=== PATIENT | male | born 1975 | race Caucasian/White ===

== ENCOUNTER → 2020-05-20 | Outpatient (CLI) | payer OTHER | LOC: M.LAB 08:07 | PROVIDERS: ATTEND Orthopaedic Surgery | DX: Z01.812 Encounter for preprocedural laboratory examination (principal); Z20.828 Contact with and (suspected) exposure to other viral communicable diseases ==

== ENCOUNTER 2020-10-11 20:51 | Emergency (ER) | payer OTHER ==
[~2020-10-11] VITALS: Ht 188 cm; Wt 97.5 kg
[2020-10-11] MEDS ORDERED: MELOXICAM15 MG PO (21:12)
[2020-10-11] MEDS ORDERED: LIPITOR 20 MG T20 M1 PO (21:12)
[2020-10-11] MEDS ORDERED: CLARITIN10 M3 PO (21:12)
[2020-10-11] MEDS ORDERED: HYDROCODON-ACE1 EAC8 PO (22:41)
[2020-10-11 22:49] VITALS: BP 134/80
== END 2020-10-11 22:49 | disposition home or self-care (01) ==
LOC: M.ERS 20:51
DX: S62.102A Fracture of unspecified carpal bone, left wrist, initial encounter for closed fracture (principal); F17.210 Nicotine dependence, cigarettes, uncomplicated; Z79.899 Other long term (current) drug therapy; Z88.0 Allergy status to penicillin; W11.XXXA Fall on and from ladder, initial encounter; Y93.89 Activity, other specified; Y92.89 Other specified places as the place of occurrence of the external cause; Y99.8 Other external cause status

== ENCOUNTER → 2021-03-05 | Outpatient (CLI) | payer OTHER ==
[~2021-03-05] MED LIST: CLARITIN10 M3 PO; HYDROCODON-ACE1 EAC8 PO; LIPITOR 20 MG T20 M1 PO; MELOXICAM15 MG PO
== END ==
LOC: M.LAB 07:30
PROVIDERS: ATTEND Orthopaedic Surgery
DX: Z20.822 Contact with and (suspected) exposure to COVID-19 (principal)